=== PATIENT | female | born 1965 | race Caucasian/White ===

== ENCOUNTER 2018-01-29 20:56 | Emergency (ER) | payer MEDICAID ==
[~2018-01-29] VITALS: Ht 152.4 cm; Wt 65.0 kg
[~2018-01-29 20:56] MED LIST: METF500T4 PO; NAPR-1183 PO
[2018-01-29] MEDS ORDERED: INSLAN SQ (21:03)
[2018-01-29] MEDS ORDERED: ASPI81 PO (21:03)
[2018-01-29] MEDS ORDERED: SITA50 PO (21:03)
[2018-01-29 21:12] LABS: GLUCOSE,POINT OF CARE 185 MG/DL (70-110)
[2018-01-29 22:01] LABS: BASOPHILS % (AUTO) 0.4 % (0.0-2.0); EOSINOPHILS % (AUTO) 3.1 % (1.0-6.0); HEMATOCRIT 39.1 % (36-46); HEMOGLOBIN 13.7 g/dL (12.0-16.0); LYMPHOCYTES # (AUTO) 1.5 K/uL (1.0-4.8); LYMPHOCYTES % (AUTO) 19.1 % (22.0-44.0); MEAN CORPUSCULAR HEMOGLOBIN 30.8 pg (26.0-34.0); MEAN CORPUSCULAR HGB CONC 34.9 G/dL (31.0-37.0); MEAN CORPUSCULAR VOLUME 88 fL (80-100); MONOCYTES # (AUTO) 0.8 K/uL (0.1-1.0); MONOCYTES % (AUTO) 9.8 % (2.0-9.0); NEUTROPHILS # (AUTO) 5.3 K/uL (1.8-7.7); NEUTROPHILS % (AUTO) 67.6 % (40.0-70.0); PLATELET COUNT (AUTO) 240 K/uL (150-450); RED BLOOD CELL COUNT(AUTO) 4.43 MIL/uL (4.00-5.20); RED CELL DISTRIBUTION WIDTH 12.6 % (11.5-14.5)
[2018-01-29 22:03] LABS: ANION GAP 12 mmol/L (8-16); CALCIUM, TOTAL 8.9 mg/dL (8.8-10.5); CARBON DIOXIDE 26 mmol/L (22-29); CHLORIDE 100 mmol/L (98-107); CREATININE 0.69 mg/dL (0.60-1.30); GLOMERULAR FILTR. RATE CALC > 60 mL/min (>60); GLUCOSE,RANDOM 173 mg/dL (70-110); POTASSIUM 3.5 mmol/L (3.5-5.1); SODIUM SERUM 138 mmol/L (136-145); UREA NITROGEN, BLOOD 11 mg/dL (7-18)
[2018-01-29 22:10] LABS: ALANINE AMINOTRANSFERASE 31 U/L (12-78); ALBUMIN 3.8 g/dL (3.4-5.0); ALKALINE PHOSPHATASE 88 U/L (46-116); ASPARTATE AMINOTRANSFERASE 19 U/L (15-37); BILIRUBIN,TOTAL 0.3 mg/dL (0.1-1.0); TOTAL PROTEIN, SERUM 7.8 g/dL (6.4-8.2)
[2018-01-29] MEDS ORDERED: ACETAMINOPHEN 325 MG TABLET PO ONE (22:30)
[2018-01-29] MEDS ORDERED: IPRATROPIUM BROMIDE 0.5 MG/2.5 ML NEB SOLUTION NEB ONE (22:45)
[2018-01-29] MEDS ORDERED: ALBUTEROL SULFATE 2.5 MG/0.5 ML NEB SOLUTION NEB ONE (22:45)
[2018-01-29 22:51] LABS: INFLUENZA TYPE A NEGATIVE FOR TYPE A (NEGATIVE); INFLUENZA TYPE B NEGATIVE FOR TYPE B (NEGATIVE)
[2018-01-29 23:42] VITALS: BP 144/63
== END 2018-01-30 00:16 | disposition home or self-care (01) ==
LOC: EMS 20:57
DX: J40 Bronchitis, not specified as acute or chronic (principal); E11.9 Type 2 diabetes mellitus without complications; E78.00 Pure hypercholesterolemia, unspecified; I10 Essential (primary) hypertension; Z79.4 Long term (current) use of insulin; Z79.82 Long term (current) use of aspirin
CPT/HCPCS: 36415; 71045; 80053; 82962; 84484; 85025; 87804; 93005; 94640; 99285; J7613

== ENCOUNTER 2018-08-13 13:39 | Emergency (ER) | payer MEDICAID ==
[~2018-08-13] VITALS: Ht 152.4 cm; Wt 65.9 kg
[~2018-08-13 13:39] MED LIST changes: +ASPI81 PO; +INSLAN SQ; +METF-444 PO; -METF500T4 PO; +SITA50 PO
[2018-08-13 13:59] LABS: GLUCOSE,POINT OF CARE 256 MG/DL (70-110)
[2018-08-13 16:19] LABS: GLUCOSE,POINT OF CARE 293 MG/DL (70-110)
[2018-08-13 17:38] VITALS: BP 113/69
== END 2018-08-13 18:06 | disposition home or self-care (01) ==
LOC: EMS 13:40
DX: S80.862A Insect bite (nonvenomous), left lower leg, initial encounter (principal); R03.0 Elevated blood-pressure reading, without diagnosis of hypertension; E11.9 Type 2 diabetes mellitus without complications; E78.00 Pure hypercholesterolemia, unspecified; Z79.4 Long term (current) use of insulin; Z79.82 Long term (current) use of aspirin; W57.XXXA Bitten or stung by nonvenomous insect and other nonvenomous arthropods, initial encounter; Y93.89 Activity, other specified; Y92.89 Other specified places as the place of occurrence of the external cause; Y99.8 Other external cause status
CPT/HCPCS: 99283

== ENCOUNTER 2018-12-13 00:32 | Emergency (ER) | payer MEDICAID ==
[~2018-12-13] VITALS: Ht 152.4 cm; Wt 67.3 kg
[2018-12-13 00:49] LABS: GLUCOSE,POINT OF CARE 184 MG/DL (70-110)
[2018-12-13 01:38] LABS: APPEARANCE,URINE CLOUDY (CLEAR); BASOPHILS % (AUTO) 0.3 % (0.0-2.0); BILIRUBIN,URINE NEGATIVE (NEGATIVE); EOSINOPHILS % (AUTO) 3.2 % (1.0-6.0); GLUCOSE, URINE (UA) 100 mg/dL (NEGATIVE); HEMATOCRIT 40.2 % (36-46); HEMOGLOBIN 13.9 g/dL (12.0-16.0); KETONES,URINE TRACE mg/dL (NEGATIVE); LEUKOCYTE ESTERASE ,URINE MODERATE (NEGATIVE); LYMPHOCYTES # (AUTO) 2.5 K/uL (1.0-4.8); MEAN CORPUSCULAR HEMOGLOBIN 30.7 pg (26.0-34.0); MEAN CORPUSCULAR HGB CONC 34.7 G/dL (31.0-37.0); MEAN CORPUSCULAR VOLUME 89 fL (80-100); MONOCYTES # (AUTO) 0.6 K/uL (0.1-1.0); NEUTROPHILS # (AUTO) 4.4 K/uL (1.8-7.7); NEUTROPHILS % (AUTO) 56.5 % (40.0-70.0); NITRATE,URINE NEGATIVE (NEGATIVE); OCCULT BLOOD,URINE NEGATIVE (NEGATIVE); PH,URINE 5.5 (5.0-8.0); PLATELET COUNT (AUTO) 310 K/uL (150-450); PROTEIN,URINE NEGATIVE (NEGATIVE); RED BLOOD CELL COUNT(AUTO) 4.53 MIL/uL (4.00-5.20); RED CELL DISTRIBUTION WIDTH 12.5 % (11.5-14.5); UROBILINOGEN,URINE 0.2 mg/dL (<=1.0)
[2018-12-13 01:43] LABS: BACTERIA,URINE Few /HPF (None Seen); RBC,URINE 0-2 /HPF (0-2); SQUAMOUS EPITHELIAL CELL,UR Many /LPF (None Seen)
[2018-12-13 01:46] LABS: ANION GAP 9 mmol/L (8-16); CALCIUM, TOTAL 8.6 mg/dL (8.8-10.5); CARBON DIOXIDE 28 mmol/L (22-29); CHLORIDE 102 mmol/L (98-107); CREATININE 0.63 mg/dL (0.60-1.30); GLOMERULAR FILTR. RATE CALC > 60 mL/min (>60); GLUCOSE,RANDOM 228 mg/dL (70-110); POTASSIUM 3.7 mmol/L (3.5-5.1); SODIUM SERUM 139 mmol/L (136-145); UREA NITROGEN, BLOOD 10 mg/dL (7-18)
[2018-12-13 01:51] LABS: ALANINE AMINOTRANSFERASE 34 U/L (12-78); ALBUMIN 3.5 g/dL (3.4-5.0); ALKALINE PHOSPHATASE 80 U/L (46-116); AMYLASE 55 U/L (25-115); ASPARTATE AMINOTRANSFERASE 17 U/L (15-37); BILIRUBIN,TOTAL 0.2 mg/dL (0.1-1.0); TOTAL PROTEIN, SERUM 7.4 g/dL (6.4-8.2)
[2018-12-13] MEDS ORDERED: PB/HYOSCY/ATR/SCOP/LIDO/MAALOX 55 ML BOTTLE PO ONE (02:00)
[2018-12-13 02:30] VITALS: BP 128/83
== END 2018-12-13 02:52 | disposition home or self-care (01) ==
LOC: EMS 00:33
DX: N39.0 Urinary tract infection, site not specified (principal); E11.9 Type 2 diabetes mellitus without complications; E78.00 Pure hypercholesterolemia, unspecified; Z79.4 Long term (current) use of insulin; Z79.82 Long term (current) use of aspirin; Z79.899 Other long term (current) drug therapy
CPT/HCPCS: 87086

== ENCOUNTER 2019-01-02 00:51 | Emergency (ER) | payer MEDICAID ==
[~2019-01-02] VITALS: Ht 152.4 cm; Wt 67.3 kg
[2019-01-02 01:31] LABS: GLUCOSE,POINT OF CARE 249 MG/DL (70-110)
[2019-01-02] MEDS ORDERED: IBUPROFEN 600 MG TABLET PO ONE (04:45)
[2019-01-02] MEDS ORDERED: AZITHROMYCIN 250 MG TABLET PO ONE (04:45)
[2019-01-02] MEDS ORDERED: IPRATROPIUM BROMIDE 0.5 MG/2.5 ML NEB SOLUTION NEB ONE (04:45)
[2019-01-02] MEDS ORDERED: ALBUTEROL SULFATE 2.5 MG/0.5 ML NEB SOLUTION NEB ONE (04:45)
[2019-01-02] MEDS ORDERED: ALBUTEROL SULFATE HFA 90 MCG/PUFF 8 GM INHALER IH ONE (04:45)
[2019-01-02 05:20] VITALS: BP 129/74
== END 2019-01-02 05:42 | disposition home or self-care (01) ==
LOC: EMS 00:51
DX: J45.901 Unspecified asthma with (acute) exacerbation (principal); J02.9 Acute pharyngitis, unspecified; E11.9 Type 2 diabetes mellitus without complications; E78.00 Pure hypercholesterolemia, unspecified; Z79.82 Long term (current) use of aspirin; Z79.4 Long term (current) use of insulin; Z79.84 Long term (current) use of oral hypoglycemic drugs
CPT/HCPCS: 94640; J3535

== ENCOUNTER 2019-12-18 12:39 | Emergency (ER) | payer MEDICAID ==
[~2019-12-18] VITALS: Ht 152.4 cm; Wt 68.2 kg
[~2019-12-18 12:39] MED LIST changes: +ASPI-728 PO; -ASPI81 PO; -NAPR-1183 PO
[2019-12-18 13:48] VITALS: BP 132/86
[2019-12-18] MEDS ORDERED: IPRATROPIUM BROMIDE 0.5 MG/2.5 ML NEB SOLUTION NEB ONE (14:45)
[2019-12-18] MEDS ORDERED: ALBUTEROL SULFATE 5 MG/ML 20 ML NEB SOLN [BULK] NEB ONE (14:45)
== END 2019-12-18 15:50 | disposition home or self-care (01) ==
LOC: EMS 12:40
DX: J40 Bronchitis, not specified as acute or chronic (principal); J44.0 Chronic obstructive pulmonary disease with (acute) lower respiratory infection; E11.9 Type 2 diabetes mellitus without complications; E78.00 Pure hypercholesterolemia, unspecified; Z79.4 Long term (current) use of insulin; Z79.82 Long term (current) use of aspirin; Z79.899 Other long term (current) drug therapy
CPT/HCPCS: 94640

== ENCOUNTER 2022-03-15 11:51 | Emergency (ER) | payer MEDICAID ==
[~2022-03-15] VITALS: Ht 152.4 cm; Wt 56.8 kg
[~2022-03-15 11:51] MED LIST changes: +ASPI-1450 PO; -ASPI-728 PO
[2022-03-15 13:29] VITALS: BP 140/92
[2022-03-15] MEDS ORDERED: HYDR-3831 PO (14:13)
== END 2022-03-15 14:31 | disposition home or self-care (01) ==
LOC: EMS 11:51
DX: L50.9 Urticaria, unspecified (principal); E11.9 Type 2 diabetes mellitus without complications; E78.00 Pure hypercholesterolemia, unspecified; Z79.4 Long term (current) use of insulin; Z79.82 Long term (current) use of aspirin
CPT/HCPCS: 99283; Z7502